=== PATIENT | female | born 1975 | race Caucasian/White ===

== ENCOUNTER 2019-10-11 12:45 | Emergency (ER) | payer OTHER, SELFPAY ==
[2019-10-11 12:57] VITALS: BP 141/72; PULSE 94; RESP 20; TEMP 36.9; O2SAT 98
--- NOTE | 2019-10-11 13:16 | ED.URI ---
HPI - URI/Sore Throat General Chief Complaint: Upper Respiratory Infection Stated Complaint: sore throat Time Seen by Provider: 10/11/19 13:17 Source: patient Mode of arrival: ambulatory Limitations: no limitations History of Present Illness HPI Narrative: Leola Silverman is a 43 yo female with no PMH who comes to express care with complaints of sore throat worse on left than right inability to swallow saliva, or drink fluids Blood pressure is elevated but patient is afebrile Related Data Home Medications Medication Instructions Recorded Confirmed No Home Medications 10/11/19 10/11/19 Allergies Allergy/AdvReac Type Severity Reaction Status Date / Time No Known Allergies Allergy Unknown Verified 10/11/19 13:12 Review of Systems Review of Systems: Narrative: CONSTITUTIONAL: Denies fever, chills, sweats. EYES: Denies visual changes, redness, discharge. ENT: Denies rhinorrhea, congestion, has sore throat, has drooling, no otalgia. CARDIOVASCULAR: Denies chest pain, palpitations, edema. RESPIRATORY: Denies dyspnea, wheezing, cough GASTROINTESTINAL: Denies abdominal pain, nausea, vomiting, diarrhea. GENITOURINARY: Denies dysuria, hematuria, abnormal discharge SKIN: Denies rash or itching. NEUROLOGIC: Denies numbness, or focal weakness. PSYCHIATRIC: Denies anxiety or depression. [facility] Family History Family History Mother Family history of lung cancer Father Family history of emphysema Other Family history of arthritis Family history of malignant neoplasm Social History Social History Smoking status: Smoker, status unknown Alcohol intake: never Comments At time of signature, I agree with nursing past medical, surgical, social and family history. There is no relevant family history pertinent to the presenting complaint. Exam Narrative: Exam Narrative: GENERAL: This is a well-nourished, well-developed patient, in moderate distress. HEAD: normocephalic, atraumatic. EYES: Sclera clear/white. Vision is grossly intact. EARS: External ears normal, auditory canals clear and without drainage, TMs normal without perforation. Hearing grossly intact. NOSE: External nose normal without nasal discharge, nares without redness, no rhinorrhea. THROAT: Mucous membranes dry posterior pharynx edema left greater than right patient unable to swallow saliva NECK: Neck supple, non-tender CARDIOVASCULAR: Regular rate and rhythm without murmurs, gallops, or rubs. RESPIRATORY: Clear to auscultation. Breath sounds equal bilaterally. No wheezes, rales, or rhonchi. GASTROINTESTINAL: Abdomen soft, non-tender, SKIN: warm, intact with no suspicious lesions or rash, good texture and turgor. NEURO: awake, alert, and oriented to person, place and time. There were no obvious focal neurologic abnormalities. Steady gait EXTREMITIES: Normal range of motion. BACK: Nontender without deformity Course Course Emergency Course: Strep test negative Patient edema is extreme for pharyngitis and difficulty swallowing requires patient be further evaluated with labs and CT-talked with ENT ,Dr Gibbs, who works at [facility] who will agreed to see her once she was evaluated by the ER physician if required Vital Signs Vital signs: Vital Signs Temperature 98.4 F 10/11/19 12:57 Pulse Rate 94 10/11/19 12:57 Respiratory Rate 20 10/11/19 12:57 Blood Pressure 141/72 H 10/11/19 12:57 Pulse Oximetry 98 10/11/19 12:57 Temperature 98.4 F 10/11/19 12:57 Pulse Rate 94 10/11/19 12:57 Respiratory Rate 20 10/11/19 12:57 Blood Pressure 141/72 H 10/11/19 12:57 Pulse Oximetry 98 10/11/19 12:57 MDM - URI/Sore Throat Differential Diagnosis Differential diagnosis: Likely pharyngitis and other (Peritonsillar abscess) Lab Data Labs: Strep Screen Presumptive Negative *(Reference Ran
== END 2019-10-11 13:35 | disposition short-term general hospital (02) ==
PROVIDERS: Emergency Provider Nurse Practitioner
DX: J02.9 Acute pharyngitis, unspecified (principal)
CPT/HCPCS: 87081; 87880; 99213; G0463

== ENCOUNTER 2020-03-23 09:32 | Emergency (ER) | payer OTHER, SELFPAY ==
[2020-03-23 09:40] VITALS: BP 156/85; PULSE 93; RESP 18; TEMP 36.8; O2SAT 98
[2020-03-23 09:47] VITALS: BP 156/85; PULSE 93; RESP 18; TEMP 36.8; O2SAT 98
--- NOTE | 2020-03-23 09:52 | ED.EAR ---
HPI - Ear Problem General Chief complaint: Ear Stated complaint: right ear pain/warm Time Seen by Provider: 03/23/20 09:44 Source: patient and RN notes reviewed Mode of arrival: ambulatory Limitations: no limitations History of Present Illness HPI Narrative: Patient presents today complaining of a 3-day history of right ear pain that was worse this morning, intermittent muffled hearing. Denies any additional symptoms to include drainage, fever, cough, sore throat, congestion or rhinorrhea. She currently rates her pain 06/23 and has been taking ibuprofen and using swimmer's ear drops. MD Complaint: ear pain Related Data Allergies Allergy/AdvReac Type Severity Reaction Status Date / Time No Known Allergies Allergy Unknown Verified 03/23/20 09:46 Review of Systems Review of Systems: Narrative: CONSTITUTIONAL: Denies body aches, fever, chills, or sweats. EYES: Denies visual changes, redness, or discharge. ENT: Denies rhinorrhea, congestion, sore throat. + Right ear pain and muffled hearing CARDIOVASCULAR: Denies chest pain, palpitations, or edema. RESPIRATORY: Denies cough or dyspnea. GASTROINTESTINAL: Denies abdominal pain, nausea, vomiting, or diarrhea. GENITOURINARY: Denies dysuria or hematuria. SKIN: Denies rash, itching, or wounds. MUSCULOSKELETAL: Denies back pain, joint pain, or myalgia. NEUROLOGIC: Denies headache, numbness, tingling, or weakness. PSYCH: Denies depression or anxiety. PMFSH Family History Family History Mother Family history of lung cancer Father Family history of emphysema Other Family history of arthritis Family history of malignant neoplasm Social History Social History Smoking status: Smoker, status unknown Alcohol intake: never Comments At time of signature, I have reviewed and agree with nursing past medical, surgical, social and family history unless otherwise noted. Please see nursing chart for further information. There is no relevant family history pertinent to the presenting complaint Exam Narrative: Exam Narrative: GENERAL: Well-appearing, well-nourished, and in no acute distress. HEAD: Normocephalic, atraumatic. EYES: EOMI. No redness or drainage. Conjunctivae normal. ENT: Mucous membranes pink and moist. Nares clear. No rhinorrhea. TMs normal bilaterally. Right canal is mildly swollen with thick white discharge. + Tragal tenderness. Right preauricular lymphadenopathy. Throat normal. Uvula midline. NECK: Normal AROM. Supple. CHEST: No respiratory distress. Clear to auscultation. HEART: Regular rate and rhythm. No murmur appreciated. Normal peripheral pulses. EXTREMITIES: Normal range of motion. No edema. SKIN: Warm, dry, no rash. Capillary refill normal. Normal skin turgor. NEURO: No focal deficits. Alert and oriented x3. Gait steady. PSYCH: Normal affect. No signs of depression or anxiety. Course Vital Signs Vital signs: Vital Signs Temperature 98.3 F 03/23/20 09:40 Pulse Rate 93 03/23/20 09:40 Respiratory Rate 18 03/23/20 09:40 Blood Pressure 156/85 H 03/23/20 09:40 Pulse Oximetry 98 03/23/20 09:40 Temperature 98.3 F 03/23/20 09:47 Pulse Rate 93 03/23/20 09:47 Respiratory Rate 18 03/23/20 09:47 Blood Pressure 156/85 H 03/23/20 09:47 Pulse Oximetry 98 03/23/20 09:47 Reviewed. Pt has been instructed to follow up with her PCP regarding her elevated blood pressure today. Medical Decision Making Differential Diagnosis Differential Diagnosis: Otitis media, otitis externa, ruptured TM, serous otitis, eustachian tube dysfunction, cerumen impaction Vital Signs Vital Signs: Vital Signs Temperature 98.3 F 03/23/20 09:40 Pulse Rate 93 03/23/20 09:40 Respiratory Rate 18 03/23/20 09:40 Blood Pressure 156/85 H 03/23/20 09:40 Pulse Oximetry 98 03/23/20 09:40 Temperature 98.3 F
== END 2020-03-23 10:00 | disposition home or self-care (01) ==
PROVIDERS: Emergency Provider Nurse Practitioner
DX: H60.8X1 Other otitis externa, right ear (principal)
CPT/HCPCS: 99213; G0463

== ENCOUNTER → 2020-10-08 14:24 | Outpatient (CLI) | payer OTHER, SELFPAY ==
--- NOTE | ~2020-10-08 | MR_ITS ---
EXAMINATION: MR knee LT wo con DATE: 10/08/2020 15:13 INDICATION: Left knee pain and limited range of motion TECHNIQUE: Magnetic resonance imaging (MRI) of the left knee was performed without intravenous contra st. Sequences included coronal PD-weighted FSE, coronal PD-weighted FS FSE, sagittal T2-weighted FSE , sagittal PD-weighted FS FSE and axial PD weighted fat saturated FSE. COMPARISON: Left knee MR dated 08/11/2014 FINDINGS: Medial compartment: Curved parrot-beak configuration tear beginning at the anterior free edge of the posterior horn and e xtending peripherally into the more lateral posterior horn of the meniscus. Minimal change in partial -thickness cartilage loss with smooth chondral surface along the medial tibial plateau and anterior t o central weightbearing medial femoral condyle Lateral compartment: Discoid lateral meniscus without discrete tear. No significant interval change in partial-thickness c artilage loss with smooth chondral surface at the posterior weightbearing lateral femoral condyle. Patellofemoral compartment: Partial-thickness chondral fissuring involving less than 50% the cartilage thickness at the central a spect of the medial patellar facet and medial side of the lateral facet. Trochlear cartilage remains normal.. Ligaments and tendons: Anterior and posterior cruciate ligaments are normal. The medial collateral ligament is normal. Uncha nged mild thickening and mild increased signal of the proximal fibular collateral ligament without szymanski rrounding edema consistent with mild scarring related to chronic sprain. Mild proximal patellar tendi nopathy. Quadriceps tendon is normal. The visualized medial and lateral hamstring tendons as well as the iliotibial band are normal. Fluid: Physiologic amount of fluid in the joint space. No loose osteochondral bodies identified. Mild prepat ellar edema without discrete bursal fluid collection. Osseous/other: Alignment is normal. Again seen are a few small scattered regions of likely red marrow reexpansion in the distal femur and proximal tibia and fibula. No fracture or pathologic marrow replacing process. IMPRESSION: 1. Parrot-beak configuration tear at the posterior horn of the medial meniscus. 2. Discoid lateral meniscus without discrete tear. 3. No significant interval change in minimal to mild medial compartment predominant tricompartmental osteoarthritis. 4. Mild proximal patellar tendinopathy. Reviewed, dictated and finalized at location A. IMPRESSION: 1. Parrot-beak configuration tear at the posterior horn of the medial meniscus. 2. Discoid lateral meniscus without discrete tear. 3. No significant interval change in minimal to mild medial compartment predomi nant tricompartmental osteoarthritis. 4. Mild proximal patellar tendinopathy.
== END ==
PROVIDERS: PCP Family Medicine; Visit Provider Nurse Practitioner
DX: G89.29 Other chronic pain (principal); M25.562 Pain in left knee
CPT/HCPCS: 73721

== ENCOUNTER 2020-12-31 13:51 | Outpatient (CLI) | payer OTHER, SELFPAY ==
--- NOTE | 2020-12-31 14:05 | ECG_ITS ---
Measurements Intervals [place] Rate: 81 P: 32 DE: 172 QRS: 59 QRSD: 86 T: 53 QT: 355 QTc: 412 Interpretive Statements SINUS RHYTHM BASELINE WANDER- I, II, III, AVL, AVF NORMAL ECG Electronically Signed On 12-31-2020 14:52:56 CDT by Zoran Cason D.O.
== END 2020-12-31 13:52 | disposition home or self-care (01) ==
PROVIDERS: PCP Family Medicine; Visit Provider Nurse Practitioner
DX: Z01.818 Encounter for other preprocedural examination (principal)
CPT/HCPCS: 93005

== ENCOUNTER 2021-01-15 00:49 | Day surgery (SDC) | payer OTHER, SELFPAY ==
[2021-01-09 08:51] VITALS: BMI 53.2
--- NOTE | 2021-01-14 15:41 | WPDANESEPPF ---
Anes - Initial Pre Proc Eval Procedure: Operation Date: 01/15/21 10:30 Proposed Procedures p Left Knee Arthroscopy, Proceed As Indicated - Donald Nicole MD Date/Time: 01/14/21 15:41 Surgeon: Donald Nicole MD Pre Op Diagnosis: Left knee medial and lateral meniscus tear Patient Data Age: 45 Gender: F Height: 1.68 m Weight: 149.7 kg Allergies Allergy/AdvReac Type Severity Reaction Status Date / Time No Known Allergies Allergy Unknown Verified 01/15/21 08:37 Home Medications Medication Instructions Recorded Confirmed Type cholecalciferol (vitamin D3) 1,250 1,250 mcg PO WEEKLY #14 tablet 09/03/20 01/15/21 Rx mcg (50,000 unit) tablet chlorhexidine gluconate 4 % 1 applic TOPICAL ONCE #237 ml 11/26/20 01/15/21 Rx topical liquid naproxen 500 mg PO BID PRN 01/09/21 01/15/21 History losartan 25 mg PO HS 01/15/21 01/15/21 History Patient hx anesthesia problems: none Family hx anesthesia problems: none PMFSH Past Medical History Medical History (Updated 01/14/21 @ 15:42 by Jose D Coburn MD) Hypertension Migraines Morbid obesity with BMI of 50.0-59.9, adult Obesity Smoker Wears glasses Surgical History Surgical History Hx of cholecystectomy (~2010) Family History Family History Mother Family history of lung cancer Father Family history of emphysema Grandparent Diabetes mellitus Other Family history of arthritis Family history of malignant neoplasm Social History Social History (Updated 01/06/21 @ 13:39 by Olamide Hernandez MA) Smoking packs per day: 0.5 Smoking cigarettes per day: 10.0 Years smoked: 30 Smoking pack-years: 15.00 Smoking status: Current every day smoker Tobacco type: cigarettes Alcohol intake: current Alcohol use details: 1 time per month Substance use: never Substance use type: does not use Last use: 01/07/21 Living arrangements: with family Gender identity (if verbalized by the patient): Female Spiritual care concerns: No Anes - Eval Final PreProcedure Day of Procedure 01/14/21 15:41 Patient weight: super morbidly obese Heart: regular rate and rhythm Lungs: clear to auscultation and normal air movement Airway: Mallampati scale class II Neurological: alert and oriented Last oral intake: >/= 8 hours ASA classification: III Emergent: no Anesthetic plan: proceed Anesthesia type and monitoring: general LMA and ETT Informed Consent: The patient's anesthetic plan and its attendant risks and benefits were discussed with the patient/family/POA. Questions were solicited and answers provided to the satisfaction of the patient/family/POA.
[2021-01-15] VITALS (7 sets, daily range): BP systolic 124–154; BP diastolic 67–99; PULSE 72–92; RESP 14–21; TEMP 36.5–36.6; O2SAT 92–99
--- NOTE | 2021-01-15 07:33 | WPDHPUPDATE1 ---
History and Physical Update Update Date/Time: 01/15/21 07:33 History and Physical has been reviewed, including an updated exam of the patient. There are NO changes in the patient's condition. Risks, benefits, and alternatives have been discussed and questions answered. Patient agrees to proceed with procedure.
[2021-01-15] MEDS: ACETAMINOPHEN 500 MG TABLET 1000 MG PO (08:40)
[2021-01-15] MEDS: CELECOXIB 200 MG CAPSULE PO (08:41)
[2021-01-15] MEDS: LACTATED RINGERS 1,000 ML 30 ML IV CONT (09:25)
--- NOTE | 2021-01-15 10:42 | SUR.PREOP ---
1040-PT AND SON AWARE SURGEON DELAYS SELF WITH PRIOR SURGERY AND OR ROOM IS BEING PREPARED AT THIS TIME.
[2021-01-15] MEDS: ceFAZolin 3 GM/D5W 100 ML 100 ML IVPB (10:57)
--- NOTE | 2021-01-15 12:34 | P.OP_ITS ---
Procedure Note - Detailed Date of Procedure 01/15/21 Pre-op Diagnosis Left knee medial meniscus tear Post-op Diagnosis same Procedure Performed LEFT KNEE SCOPE Surgeon Donald Nicole MD Anesthesia general Description of Procedure PATIENT WAS TAKEN TO THE OR. LEFT LEG WAS PREPPED AND DRAPED STERILE. TROCARS WERE PLACED IN THE USUAL FASHION. CAMERA WAS INTRODUCED. THERE WAS CHONDROMALACIA TO THE PATELLA FEMORAL JOINT. THERE WAS A LOT OF SYNOVITIS IN ALL COMPARTMENTS. THE MEDIAL COMPARTMENT SHOWED CHONDROMALACIA TO THE MEDIAL FEMORAL CONDYLE. A SHAVER WAS USED TO PREFORM A CHONDROPLASTY. THERE WAS A COMPLEX MEDIAL MENISCUS TEAR. THE TEAR WAS RESECTED WITH A BITER AND A SHAVER DOWN TO A SMOOTH BASE. ABOUT 30% OF THE MENISCUS WAS REMOVED. THE ACL WAS INTACT. THE LATERAL MENISCUS WAS NOT TORN. THE LATERAL COMPARTMENT HAD MINIMAL CHONDROMALACIA. CHONDROPLASTY WAS PREFORMED. A SYNOVECTOMY WAS PREF ORMED WELL. THE PATELLO FEMORAL JOINT UNDERWENT CHONDROPLASTY. THERE WAS GRADE 2 CHONDROMALACIA IN PART OF THE TROCHLEA AND PART OF THE PATELLA. SYNOVECTOMY WAS PREFORMED IN THE SUPERIOR MEDIAL COMPARTMENT. THE WOUNDS WERE APPROXIMATED WITH 4.0 NYLON. STERILE DRESSING WAS APPLIED. PATIENT WAS EXTUBATED. Estimated Blood Loss 5 Complications No immediate complications Condition stable Disposition PACU
[2021-01-15] MEDS: fentaNYL CITRATE INJ (*CRX) 100 MCG/2 ML VIAL 25 MCG IV PUSH ×4 (12:52→13:04)
--- NOTE | 2021-01-15 13:05 | SUR.PHASEI ---
1913 - dr. ibarra at bedside
== END 2021-01-15 14:10 | disposition home or self-care (01) ==
PROVIDERS: PCP Family Medicine; Visit Provider Orthopaedic Surgery
PROC: (CPT 29870; principal; 2021-01-15 10:30)
DX: M23.332 Other meniscus derangements, other medial meniscus, left knee (principal); M94.262 Chondromalacia, left knee; M65.862 Other synovitis and tenosynovitis, left lower leg; I10 Essential (primary) hypertension; E66.01 Morbid (severe) obesity due to excess calories; Z68.43 Body mass index [BMI] 50.0-59.9, adult; F17.210 Nicotine dependence, cigarettes, uncomplicated
CPT/HCPCS: 29881; 93005; A9270; J0330; J0690; J1100; J2250; J2405; J2704; J3010; J7120

== ENCOUNTER 2021-09-15 09:55 | Emergency (ER) | payer OTHER, SELFPAY ==
--- NOTE | ~2021-09-15 | XR_ITS ---
EXAMINATION: XR chest 2V EXAM DATE: 09/15/2021 10:33 INDICATION: Dry Cough/Congestion/Sob X 2 Days. TECHNIQUE: Frontal and lateral projections of the chest obtained and reviewed. Comparison is made to prior examination from 03/14/2019. FINDINGS: There is an azygos fissure. No confluent consolidation, pneumothorax or pleural effusion s uspected. Cardiomediastinal silhouette is normal. There are no osseous abnormalities identified. IMPRESSION: No acute cardiac pulmonary findings. Reviewed, dictated and finalized at location A.
[2021-09-15 10:00] VITALS: BP 157/89; PULSE 101; RESP 20; TEMP 37; O2SAT 94
--- NOTE | 2021-09-15 10:08 | ED.URI ---
HPI - URI/Sore Throat General Chief Complaint: Upper Respiratory Infection Stated Complaint: Chest Congestion/Shortness of Breath Time Seen by Provider: 09/15/21 10:42 Source: patient and RN notes reviewed Mode of arrival: ambulatory Limitations: no limitations History of Present Illness HPI Narrative: 45-year-old female presents with concern for 3 to 4-day history of cough, shortness of breath, wheezing. She reports she is a smoker, however she denies any history of asthma, COPD, emphysema. She reports nasal congestion and rhinorrhea. She denies body aches, chills, sweats, fever. MD elicited complaint: cough Related Data Allergies Allergy/AdvReac Type Severity Reaction Status Date / Time No Known Allergies Allergy Unknown Verified 09/15/21 10:22 Review of Systems Review of Systems: CONSTITUTIONAL: Denies malaise, chills, sweats, or fever. EYES: Denies visual changes, redness, or discharge. ENT: Reports rhinorrhea, congestion. Denies sinus pain, otalgia and sore throat. CARDIOVASCULAR: Denies chest pain, palpitations, or edema. RESPIRATORY: Reports cough, wheezing, dyspnea. MUSCULOSKELETAL: Denies myalgia. NEUROLOGIC: Denies headache. All systems reviewed & are unremarkable except as noted in HPI and below PMFSH Past Medical History Medical History Hypertension Migraines Morbid obesity with BMI of 50.0-59.9, adult Obesity Smoker Wears glasses Surgical History Surgical History Hx of cholecystectomy (~2010) Family History Family History Mother Family history of lung cancer Father Family history of emphysema Grandparent Diabetes mellitus Other Family history of arthritis Family history of malignant neoplasm Social History Social History Smoking packs per day: 0.5 Smoking cigarettes per day: 10.0 Years smoked: 30 Smoking pack-years: 15.00 Smoking status: Current every day smoker Tobacco type: cigarettes Alcohol intake: current Alcohol use details: 1 time per month Substance use: never Substance use type: does not use Last use: 01/07/21 Gender identity (if verbalized by the patient): Female Spiritual care concerns: No Comments At time of signature, agree with nursing past medical, surgical, social and family history. There is no relevant family history pertinent to the presenting complaint Exam Narrative: GENERAL: Well-appearing, well-nourished, and in no acute distress. HEAD: Normocephalic EYES: PERRLA, conjunctivae clear ENT: Nares clear, clear discharge. Mucous membranes moist. TM pearly wallace with dull light reflex bilaterally; no tragal tenderness. Oropharynx not erythematous without lesions. Tonsils not enlarged and without exudate, no drooling, no hoarseness, no trismus, uvula midline. NECK: Supple. No lymphadenopathy CHEST: Aeration poor, scattered inspiratory and expiratory wheeze, breath sounds diminished. No rhonchi, rales, or stridor. No respiratory distress, speaks in full sentences. HEART: Regular rate and rhythm. No murmur heard. SKIN: Warm, dry, no rash. NEURO: Alert and oriented x3. PSYCH: Normal mood and affect Course Course Emergency Course: Patient is aware of diagnosis, understands and agrees to treatment plan. Anticipatory guidance given. Patient agrees to follow-up as directed and is aware of reasons to seek care at the emergency department. Portions of this record may have been created with voice recognition software Level of Care: Express Care Visit Vital Signs Vital signs: Reviewed. Patient has history of hypertension MDM - URI/Sore Throat MDM Narrative Medical decision making narrative: Differential diagnosis considered: Wren virus, strep pharyngitis, allergic rhinitis, upper respiratory tract infection, sinusitis, rh
[2021-09-15] MEDS: ALBUTEROL SULFATE NEB 2.5 MG/3 ML INH INHALATION (10:54)
[2021-09-15] MEDS: IPRATROPIUM BR 0.02% INH SOLN 0.5 MG/2.5 ML VIAL INHALATION (10:55)
== END 2021-09-15 11:34 | disposition home or self-care (01) ==
PROVIDERS: Emergency Provider Nurse Practitioner
DX: J06.9 Acute upper respiratory infection, unspecified (principal); R05.9 Cough, unspecified; F17.210 Nicotine dependence, cigarettes, uncomplicated; I10 Essential (primary) hypertension; E66.01 Morbid (severe) obesity due to excess calories; Z68.43 Body mass index [BMI] 50.0-59.9, adult
CPT/HCPCS: 71046; 94640; 99213; G0463

== ENCOUNTER 2023-06-14 16:46 | Emergency (ER) | payer OTHER, SELFPAY ==
--- NOTE | ~2023-06-14 | XR_ITS ---
EXAM: XR foot LT min 3V DATE: 06/14/2023 17:19 HISTORY: injury, LEFT FOOT DORSAL TO 1ST TOE, SWOLLEN, BRUISED . COMPARISON: None available. FINDINGS: Normal mineralization. Oblique nondisplaced left first proximal phalanx fracture. No lytic or blastic lesion. Mild scattered degenerative changes. Moderate Achilles and plantar enthesopathy. No erosion or periosteal change. Forefoot soft tissue swelling. IMPRESSION: Oblique, nondisplaced left first proximal phalanx fracture. Reviewed, dictated and finalized at location K. [employer]
--- NOTE | ~2023-06-14 | XR_ITS ---
EXAM: XR tibia fibula LT 2V DATE: 06/14/2023 18:12 HISTORY: pain, fall, MEDIAL SIDE RADIATING DISTAL . COMPARISON: None available. FINDINGS: Normal mineralization. No fracture or dislocation. No lytic or blastic lesion. Degenerativ e changes in the knee and ankle. No erosion or periosteal change. Soft tissues within normal limits. IMPRESSION: No acute osseous finding in the left tibia/fibula. Reviewed, dictated and finalized at location K. INDER OPERATOR
[2023-06-14 16:47] VITALS: BP 196/108; PULSE 102; RESP 18; TEMP 36.1; O2SAT 96
--- NOTE | 2023-06-14 17:57 | ED.LOWEXIN ---
HPI - Extremity Injury (Lower) General Chief Complaint: Extremity Injury, Lower Stated Complaint: left foot injury Time Seen by Provider: 06/14/23 16:58 History of Present Illness HPI Narrative: 47-year-old female reports for evaluation for left lower extremity pain after a mechanical fall that occurred earlier today. Patient states she was walking down the stairs with a basket of laundry in her hands, accidentally stepped on her cat and fell down the stairs. She states she landed with her left foot twisted. States she did not have any immediate pain but after walking around on her foot preparing dinner, she began having pain in her left toe, predominantly over her left great toe with associated ecchymosis. She is also reporting generalized pain throughout her left tibia. She denies hip or knee pain, neck pain, neck pain or other injuries acquired. She did not hit her head or lose consciousness. Related Data Allergies Allergy/AdvReac Type Severity Reaction Status Date / Time No Known Allergies Allergy Unknown Verified 09/15/21 10:22 Review of Systems Review of Systems: CONSTITUTIONAL: Denies fever, chills, or sweats. EYES: Denies visual changes, redness, or discharge. ENT: Denies rhinorrhea, congestion, sore throat, or otalgia. CARDIOVASCULAR: Denies chest pain, palpitations, or edema. RESPIRATORY: Denies cough or dyspnea. GASTROINTESTINAL: Denies abdominal pain, nausea, vomiting, or diarrhea. GENITOURINARY: Denies dysuria or hematuria. SKIN: Denies rash or itching. MUSCULOSKELETAL: See HPI NEUROLOGIC: Denies headache, numbness, or weakness. PSYCHIATRIC: Denies anxiety or depression. [facility] Past Medical History Medical History Hypertension Migraines Morbid obesity with BMI of 50.0-59.9, adult Obesity Smoker Wears glasses Surgical History Surgical History Hx of cholecystectomy (~2010) Family History Family History Mother Family history of lung cancer Father Family history of emphysema Grandparent Diabetes mellitus Other Family history of arthritis Family history of malignant neoplasm Social History Social History Smoking packs per day: 0.5 Smoking cigarettes per day: 10.0 Years smoked: 30 Smoking pack-years: 15.00 Smoking status: Current every day smoker Tobacco type: cigarettes Alcohol intake: current Alcohol use details: 1 time per month Substance use: never Substance use type: does not use Last use: 01/07/21 Living arrangements: with family Gender identity (if verbalized by the patient): Female Spiritual care concerns: No Exam Narrative: GENERAL: Well-appearing, well-nourished, and in no acute distress. HEAD: Normocephalic, atraumatic. NECK: Supple. CHEST: Clear to auscultation. No respiratory distress. HEART: Regular rate and rhythm. No murmur heard. Normal peripheral pulses. ABDOMEN: Soft, nontender, nondistended, normal active bowel sounds. EXTREMITIES: LLE: no tenderness to hip, femur or knee. Tenderness to palpation of the proximal tibia in mid to distal tibia. No overlying skin changes or obvious deformity. There is tenderness to the 2nd metacarpal, 1st metacarpal and 1st toe. Overlying ecchymosis And edema to the dorsum of the 1st toe noted. No lacerations or abrasions. Full range of motion of hip, knee and ankle. mildly limited ability to wiggle toes likely secondary to pain. Sensation intact throughout. Cap refill less than 2. DP pulse 2 +. SKIN: Warm, dry, no rash. NEURO: No focal deficits. Alert and oriented x3 Course Vital Signs Vital signs: Vital Signs Temperature 97.0 F L 06/14/23 16:47 Pulse Rate 102 H 06/14/23 16:47 Respiratory Rate 18 06/14/23 16:47 Blood Pressure 196/108 H
[2023-06-14] MEDS: HYDROcodone/acetaminophen (*CRX) 5-325 MG TABLET 1 TAB PO (18:19)
[2023-06-14 18:28] VITALS: BP 174/100; PULSE 89; RESP 18; TEMP 36.6; O2SAT 98
--- NOTE | 2023-06-14 18:33 | PC.NURSE ---
Pt states she feels hypertension from pain & trauma of falling. Denies chest pain, shortness of breath or dizziness
== END 2023-06-14 19:02 | disposition home or self-care (01) ==
PROVIDERS: Emergency Provider Physician Assistant
DX: S92.415A Nondisplaced fracture of proximal phalanx of left great toe, initial encounter for closed fracture (principal); I10 Essential (primary) hypertension; E66.01 Morbid (severe) obesity due to excess calories; Z68.42 Body mass index [BMI] 45.0-49.9, adult; F17.210 Nicotine dependence, cigarettes, uncomplicated; Z90.49 Acquired absence of other specified parts of digestive tract; W10.9XXA Fall (on) (from) unspecified stairs and steps, initial encounter
CPT/HCPCS: 73590; 73630; 99284; A9270

== ENCOUNTER 2023-07-14 12:52 | Emergency (ER) | payer OTHER, SELFPAY ==
[2023-07-14 12:52] VITALS: BP 180/90; PULSE 101; RESP 20; TEMP 36.9; O2SAT 98
--- NOTE | 2023-07-14 13:31 | ED.URI ---
HPI - URI/Sore Throat General Chief Complaint: Upper Respiratory Infection Stated Complaint: Sore Throat Time Seen by Provider: 07/14/23 13:18 Source: patient and RN notes reviewed Mode of arrival: ambulatory Limitations: no limitations History of Present Illness HPI Narrative: Patient presents today complaining of a sore throat since early this morning. Denies any additional symptoms to include cough, congestion, rhinorrhea, fever. States it is very painful when she swallows. Currently rates her pain at rest 4/10. She has tried no medication for symptoms prior to arrival. Related Data Allergies Allergy/AdvReac Type Severity Reaction Status Date / Time No Known Allergies Allergy Unknown Verified 07/14/23 13:22 Review of Systems Review of Systems: CONSTITUTIONAL: Denies body aches, fever, chills, or sweats. EYES: Denies visual changes, redness, or discharge. ENT: Denies rhinorrhea, congestion, or otalgia.+ sore throat CARDIOVASCULAR: Denies chest pain, palpitations, or edema. RESPIRATORY: Denies cough or dyspnea. GASTROINTESTINAL: Denies abdominal pain, nausea, vomiting, or diarrhea. GENITOURINARY: Denies dysuria or hematuria. SKIN: Denies rash, itching, or wounds. MUSCULOSKELETAL: Denies back pain, joint pain, or myalgia. NEUROLOGIC: Denies headache, numbness, tingling, or weakness. PSYCH: Denies depression or anxiety. [facility] Past Medical History Medical History Hypertension Migraines Morbid obesity with BMI of 50.0-59.9, adult Obesity Smoker Wears glasses Surgical History Surgical History Hx of cholecystectomy (~2010) Family History Family History Mother Family history of lung cancer Father Family history of emphysema Grandparent Diabetes mellitus Other Family history of arthritis Family history of malignant neoplasm Social History Social History Smoking packs per day: 0.5 Smoking cigarettes per day: 10.0 Years smoked: 30 Smoking pack-years: 15.00 Smoking status: Current every day smoker Tobacco type: cigarettes Alcohol intake: current Alcohol use details: 1 time per month Substance use: never Substance use type: does not use Last use: 01/07/21 Living arrangements: with family Gender identity (if verbalized by the patient): Female Spiritual care concerns: No Comments At time of signature, I have reviewed and agree with nursing past medical, surgical, social and family history unless otherwise noted. Please see nursing chart for further information. There is no relevant family history pertinent to the presenting complaint Exam Narrative: GENERAL: Well-appearing, well-nourished, and in no acute distress. HEAD: Normocephalic, atraumatic. EYES: EOMI. No redness or drainage. Conjunctivae normal. ENT: Mucous membranes pink and moist. Nares clear. No rhinorrhea. TMs normal bilaterally. Throat erythematous. Tonsils 3+ without exudate. Uvula midline. NECK: Normal AROM. Supple. No lymphadenopathy. CHEST: No respiratory distress. Clear to auscultation. HEART: Regular rate and rhythm. No murmur appreciated. EXTREMITIES: Normal range of motion. No edema. SKIN: Warm, dry, no rash. Capillary refill normal. Normal skin turgor. NEURO: No focal deficits. Alert and oriented x3. Gait steady. PSYCH: Normal affect. No signs of depression or anxiety. Course Course Level of Care: Express Care Visit Vital Signs Vital signs: BP 180/90, HR 101, Temp 98.5, Ox 98 on RA. Reviewed MDM - URI/Sore Throat MDM Narrative Medical decision making narrative: Rapid strep negative. Culture pending. Patient will be treated for her pharyngitis with prednisone to help with the inflammation. Anticipatory guidance given. Differential
== END 2023-07-14 13:35 | disposition home or self-care (01) ==
PROVIDERS: Emergency Provider Nurse Practitioner
DX: J02.9 Acute pharyngitis, unspecified (principal); F17.210 Nicotine dependence, cigarettes, uncomplicated; I10 Essential (primary) hypertension; E66.01 Morbid (severe) obesity due to excess calories; Z68.43 Body mass index [BMI] 50.0-59.9, adult
CPT/HCPCS: 87081; 87880; 99213; G0463

== ENCOUNTER 2025-05-16 11:43 | Outpatient (CLI) | payer OTHER, SELFPAY ==
--- NOTE | ~2025-05-16 | MM_ITS ---
EXAMINATION: MM screening rose BI w [facility] HISTORY: Screening TECHNIQUE: Craniocaudal and mediolateral oblique 3-D tomosynthesis images were obtained and synthetic 2-D images were generated. CAD analysis was submitted and interpreted. COMPARISON: No prior mammogram is available for comparison at this institution. BREAST PARENCHYMAL COMPOSITION: Dense: The breasts are extremely dense, which lowers the sensitivity of mammography. FINDINGS: There is no evidence of suspicious mass, calcification, or architectural distortion to suggest malignancy in either breast. There has been no suspicious interval change. IMPRESSION: 1. No mammographic evidence of malignancy. 2. Recommend routine screening mammography in one year. BI-RADS Category 1: Negative Reviewed, dictated and finalized at location I. ER MACHINE ATTENDANT
--- OUTSIDE RECORDS SUMMARY | 2025-05-16 13:13 | XMS_ITS | Clinical Summary ---
Author Organization [facility] Address [address] [place] [address] Care Team Providers Care Furrier Designer Name Role Phone No, Physician Primary Care Provider [phone] Allergies No known active allergies Medications famotidine (PEPCID) 40 mg tabletIndicatio ns:Laryngeal spasm Take 1 tablet (40 mg total) by mouth nightly 90 tablet 3 10/27/2019 Active Active Problems Problem Noted Date Diagnosed Date Laryngeal spasm 10/27/2019 Assessment & Plan (10/27/2019 1:25 PM CDT): Augmentin twice daily for 14 days with a meal Pepcid 40 mg at bedtime for 6 weeks Follow up if symptoms do not resolve If symptoms do not resolve or return, consider biopsy of the left tonsil Acute tonsillitis 10/16/2019 Assessment & Plan (10/27/2019 1:28 PM CDT): Augmentin twice daily for 14 days with a meal Pepcid 40 mg at bedtime for 6 weeks Follow up if symptoms do not resolve If symptoms do not resolve or return, consider biopsy of the left tonsil Discussed good hydration Assessment & Plan (10/16/2019 11:37 AM CDT): Finish Antibiotics completely with a meal Good dental care and oral hygiene Mouthwash gargles and spits Social History Tobacco Use Types Packs/Day Years Used Date Smoking Tobacco: Every Day Cigarettes Smokeless Tobacco: Never Comments:half pack a day Alcohol Use Standard Drinks/Week Comments Not Currently 0 (1 standard drink = 0.6 oz pur e alcohol) Personal Safety Answer Date Recorded Getting School Help Needed Not on file 08/27 Comments Unknown Sex and Gender Information Value Date Recorded Sex Assigned at Not on file Legal Sex 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 Gender Identity Not on file Sexual Orientation Not on file Last Filed Vital Signs Vital Sign Reading Time Taken Comments Blood Pressure 186/101 10/27/2019 1:00 PM CDT Pulse 85 10/27/2019 1:00 PM CDT Temperature 36.2 C (97.2 F) 10/27/2019 1:00 PM CDT Respiratory Rate 18 10/11/2019 5:30 PM CDT Oxygen Saturation 97% 10/11/2019 2:15 PM CDT Inhaled Oxygen Concentration - - Weight 152 kg (335 lb) 10/27/2019 1:00 PM CDT Height 167.6 cm (5' 6) 10/27/2019 1:00 PM CDT Body Mass Index 54.07 10/27/2019 1:00 PM CDT Plan of Treatment Not on file Insurance CHO[employer] PLUS [facility] HMO/PPO Address: [facility] [address] [place] [address] Care Teams Furrier Designer Relationship Specialty Start Date End Date No, Physician PCP - General 10/11/19
--- OUTSIDE RECORDS SUMMARY | 2025-05-16 13:13 | XMS_ITS | Clinical Summary ---
Author Organization [facility] Address [address] [place] [address] Phone Care Team Providers Care Power Generation Plant Operator Name Role Phone Provider, None Primary Care Provider Unavailabl e Allergies No known active allergies Medications ondansetron (ZOFRAN ODT) 4 MG TABLET DISPERSIBLE Take 1 Tab by mouth every 8 hours as needed for Nausea - 2nd line. 10 Tab 01/19/2018 Active Social History Tobacco Use Types Packs/Day Years Used Date Smoking Tobacco: Some Days Smokeless Tobacco: Never Alcohol Use Standard Drinks/Week Comments Yes 0 (1 standard drink = 0.6 oz pur e alcohol) 1/month Comments No Sex and Gender Information Value Date Recorded Sex Assigned at Not on file Legal Sex Female 6:06 PM CDT Gender Identity Not on file Sexual Orientation Not on file Last Filed Vital Signs Vital Sign Reading Time Taken Comments Blood Pressure 145/96 04/12/2018 11:03 PM CDT Pulse 103 04/12/2018 11:03 PM CDT Temperature 36.9 C (98.5 F) 04/12/2018 10:11 PM CDT Respiratory Rate 18 04/12/2018 11:03 PM CDT Oxygen Saturation 97% 04/12/2018 11:03 PM CDT Inhaled Oxygen Concentration - - Weight 140.6 kg (310 lb) 04/12/2018 10:11 PM CDT Height 168.9 cm (5' 6.5) 04/12/2018 10:11 PM CD T Body Mass Index 49.29 04/12/2018 10:11 PM CDT Plan of Treatment Health Maintenance Due Date Last Done Comments Hepatitis C Virus (HCV) Screening 1975 TdaP Immunization 1975 Hepatitis B Immunization (1 of 3 - 19+ 3-dose series) 12/04/1994 Pap Smear 12/04/1996 Cervical Cancer Screening (CCS) 12/04/2005 HPV/Cotest 12/04/2005 Cologuard 12/04/2020 Colonoscopy 12/04/2020 Colorectal Cancer Screening 12/04/2020 Immunochemical Fecal Occult Blood 12/04/2020 Influenza Immunization (#1) 2025 SARS-COV-2 Immunization (2 - 2024- season) 2025 09/19/2020 Respiratory Syncytial Virus (RSV) Immunization (Adult) (1 - 1-dose 75+ series) 12/04/2050 Human Papillomavirus (HPV) Immunization Aged Out No longer eligible b ased on patient's age to complete this topic Meningococcal Immunization (ACWY) Aged Out No longer eligible based on patient's age to complete this topic Pneumococcal Immunization Combined Aged Out No longer eligible based on patient's age to complete this topic Rotavirus Immunization Aged Out No lo nger eligible based on patient's age to complete this topic Care Teams Power Generation Plant Operator Relationship Specialty Start Date End Date Provider, None [place] PCP - General 10/05/17
== END 2025-05-16 11:44 | disposition home or self-care (01) ==
LOC: CHSIMG 11:44
PROVIDERS: PCP Nurse Practitioner Family; Visit Provider Nurse Practitioner Family
DX: Z12.31 Encounter for screening mammogram for malignant neoplasm of breast (principal)
CPT/HCPCS: 77063; 77067